=== PATIENT | male | born 2000 | race African-American/Black ===

== ENCOUNTER 2018-01-17 19:29 | Emergency (ER) | payer MEDICAID ==
[2018-01-17] MEDS ORDERED: HYDROCODONE/ACETAMINOPHEN 5-325 MG TABLET PO ONE (20:10)
--- NOTE | 2018-01-17 20:12 | ER Document Report ---
HPI - HPI Patient complains to provider of: Scalp abscess Onset: Other - 2 months Onset/Duration: Persistent, Worse Quality of pain: Achy Pain Level: 3 Context: Vision states he has had a lump to his scalp for the past 2 months became painful over the past month. Patient states the pain symptoms worsen today which prompted him to come in. Patient denies any fever. Associated Symptoms: Other - Scalp abscess Exacerbated by: Denies Relieved by: Denies Similar symptoms previously: Yes Recently seen / treated by doctor: No - ROS ROS below otherwise negative: Yes Systems Reviewed and Negative: Yes All other systems reviewed and negative - CONSTITUTIONAL Constitutional: DENIES: Fever - NEURO Neurology: DENIES: Headache, Vision blurred, Dizzinesss / Vertigo - DERM Skin Color: Normal Notes: Abscess to scalp Past Medical History - General Information source: Patient - Social History Smoking Status: Current Every Day Smoker Smoking Education Provided: Yes Frequency of alcohol use: None Drug Abuse: None Occupation: None Lives with: Family Family History: Reviewed & Not Pertinent Patient has suicidal ideation: No Patient has homicidal ideation: No - Medical History Medical History: Negative Renal/ Medical History: Denies: Hx Peritoneal Dialysis Surgical Hx: Negative Vertical Provider Document - CONSTITUTIONAL Agree With Documented VS: Yes Exam Limitations: No Limitations General Appearance: WD/WN, No Apparent Distress - INFECTION CONTROL TRAVEL OUTSIDE OF THE [place] IN LAST 30 DAYS: No - HEENT HEENT: Atraumatic, Normocephalic Notes: abscess with central area of fluctuance to apex of scalp - NECK Neck: Normal Inspection - RESPIRATORY Respiratory: No Respiratory Distress - BACK Back: Normal Inspection - MUSCULOSKELETAL/EXTREMETIES Musculoskeletal/Extremeties: MAEW - NEURO Level of Consciousness: Awake, Alert, Appropriate Motor/Sensory: No Motor Deficit - DERM Integumentary: Warm, Dry, Abscess Course - Vital Signs Vital signs: Temp Pulse Resp BP Pulse Ox 98.4 F 66 18 129/75 H 95 01/17/18 19:37 01/17/18 19:37 01/17/18 19:37 01/17/18 19:37 01/17/18 19:37 Procedures - Incision and Drainage Head Type: Simple Anesthetic type: 1% Lidocaine I&D procedure: Betadine prep applied Incision Method: Incision made by scalpel Amount/type of drainage: mod amount of purulent material Discharge - Discharge Clinical Impression: Scalp abscess, Subcutaneous cyst Condition: Stable Disposition: HOME, SELF-CARE Instructions: Abscess ([facility]), Oral Narcotic Medication ([facility]), Post Incision and Drainage, Trimethoprim-Sulfa ([facility]) Additional Instructions: Return immediately for any new or worsening symptoms Followup with your primary care provider, call tomorrow to make a followup appointment Prescriptions: Naproxen [Naprosyn 250 Nmg Tablet] 1 tab PO BID #14 tablet Sulfamethoxazole/Trimethoprim [Bactrim Ds Tablet] 1 each PO BID #20 tablet Forms: Smoking Cessation Education Referrals: MARITZA HALL MD [ACTIVE STAFF] - Follow up as needed
[2018-01-17] MEDS ORDERED: HYDROCODONE/ACETAMINOPHEN 5-325 MG (6 TAB/ER DISP) PO PRN (20:52)
[2018-01-17] MEDS ORDERED: SULFAMETHOXAZOLE/TRIMETHOPRIM 800-160 MG TABLET PO ONE (20:53)
[2018-01-17 21:14] VITALS: BP 124/70
== END 2018-01-17 21:09 | disposition home or self-care (01) ==
LOC: ER 19:29
PROC: 0H90XZZ Drainage of Scalp Skin, External Approach (ICD-10-PCS; principal; 2018-01-17)
DX: L02.811 Cutaneous abscess of head [any part, except face] (principal); F17.200 Nicotine dependence, unspecified, uncomplicated
CPT/HCPCS: 99283; 10060; J3490